=== PATIENT | female | born 1970 | race Hispanic/Latino ===

== ENCOUNTER 2021-10-20 20:19 | Emergency (ER) | payer OTHER ==
[~2021-10-20] VITALS: Ht 157.5 cm; Wt 91.2 kg
[~2021-10-20 20:19] MED LIST: CAPTOPRIL25 MG PO; EXCEDRIN MIGRA1 EAC3 PO; OMEPRAZOLE20 MG PO
[2021-10-20] MEDS ORDERED: IBUPROFEN IB200 MG PO (21:03)
[2021-10-20] MEDS ORDERED: ACETAMINOPHEN500 MG PO (21:03)
[2021-10-20] MEDS ORDERED: IBUPROFEN 200 MG TAB PO ONE (21:15)
[2021-10-20] MEDS ORDERED: IBUPROFEN 600 MG TAB ONE (21:27)
[2021-10-20 21:45] VITALS: BP 188/90
== END 2021-10-20 21:44 | disposition home or self-care (01) ==
LOC: FSED 21:08
DX: S93.601A Unspecified sprain of right foot, initial encounter (principal); W01.0XXA Fall on same level from slipping, tripping and stumbling without subsequent striking against object, initial encounter; Y93.01 Activity, walking, marching and hiking; Y92.89 Other specified places as the place of occurrence of the external cause; I10 Essential (primary) hypertension
CPT/HCPCS: 99283